=== PATIENT | female | born 1995 | race Caucasian/White ===

== ENCOUNTER 2023-08-07 22:13 | Emergency (ER) | payer BC, MEDICAID, SELFPAY ==
[2023-08-07 22:32] VITALS: BP 118/88; PULSE 103; RESP 18; TEMP 36.8; O2SAT 97; BMI 42.6
--- NOTE | 2023-08-07 22:37 | ED.ABDPAIN1 ---
HPI - Abdominal Pain General Chief Complaint: Abdominal Pain Stated Complaint: SEVERE ABDOMINAL PAIN/PELVIC Time Seen by Provider: 08/07/23 22:33 Source: patient Mode of arrival: walk-in Limitations: no limitations History of Present Illness HPI narrative: presents complaining of abdominal pain. States abrupt onset of lower abdominal pain after having a BM. No blood per rectum. Denies vaginal discharge or dysuria/hematuria. States she has IUD in place. Has not had a period in years. No fever MD elicited complaint: Reports abdominal pain Related Data Home Medications Medication Instructions Recorded Confirmed bupropion HCl 300 mg 24 hr tablet, mg PO 08/07/23 extended release buspirone 5 mg tablet mg 08/07/23 cholecalciferol (vitamin D3) 125 08/07/23 mcg (5,000 unit) capsule esomeprazole magnesium 40 mg mg 08/07/23 capsule,delayed release mecobalamin (vitamin B12) 1,000 1,000 mcg PO DAILY 08/07/23 08/07/23 mcg chewable tablet Allergies Allergy/AdvReac Type Severity Reaction Status Date / Time phentermine [From Adipex-P] AdvReac Intermediate fast heart Verified 08/07/23 22:39 rate Review of Systems ROS Status of ROS 10 or more systems reviewed and unremarkable except as noted in history and below [facility] Social History Smoking status: Current every day smoker Exam Constitutional Vital Signs, click to edit/add: Last Vital Signs Temp 98.2 F 08/07/23 22:32 Pulse 103 H 08/07/23 22:32 Resp 18 08/07/23 22:32 BP 118/88 08/07/23 22:32 Pulse Ox 97 08/07/23 22:32 O2 Del Method Room Air 08/07/23 22:32 Common normals: no apparent distress, average body habitus and oriented x3 Eye Common normals: EOMs intact bilaterally and conjunctivae normal Respiratory Common normals: normal respiratory effort, no retractions, no use of accessory muscles and clear to auscultation bilaterally Cardio Common normals: regular rate, regular rhythm, S1 normal heart sound and S2 normal heart sound GI Other: mild tenderness bilat lower quad and suprapubic Extremity Common normals: normal to inspection and full ROM Neuro Common normals: oriented x3, CN's II-XII intact bilaterally, moves all extremities, no focal motor deficits and no sensory deficits noted Psych Appearance: grossly normal Course Vital Signs Vital signs: Vital Signs Temperature 98.2 F 08/07/23 22:32 Pulse Rate 103 H 08/07/23 22:32 Respiratory Rate 18 08/07/23 22:32 Blood Pressure 118/88 08/07/23 22:32 Pulse Oximetry 97 08/07/23 22:32 Oxygen Delivery Method Room Air 08/07/23 22:32 Temperature 98.2 F 08/07/23 22:32 Pulse Rate 103 H 08/07/23 22:32 Respiratory Rate 18 08/07/23 22:32 Blood Pressure 118/88 08/07/23 22:32 Pulse Oximetry 97 08/07/23 22:32 Oxygen Delivery Method Room Air 08/07/23 22:32 MDM - Abdominal Pain MDM Narrative Medical decision making narrative: patient presents with acute onset of lower abdominal pelvic pain. Pain improved some by the time she arrived her. US demonstrates 3.7cm complex ovarian cyst. 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 Lab Data Labs: Lab Results 08/07/23 08/07/23 Range/Units 22:58 23:00 WBC 9.2 (4.0-11.0) 10^3/uL RBC 5.02 (4.20-5.40) 10^6/uL Hgb 13.5 (12.0-16.0) g/dL Hct 40.7 (36.0-48.0) % MCV 81.1 (81.0-99.0) fL MCH 26.9 (26.7-34.0) pg MCHC 33.2 (29.9-35.2) g/dL RDW 12.6 (11.0-15.0) % Plt Count 300 (150-450) 10^3/uL MPV 9.4 L (9.5-13.5) fL Neut % (Auto) 71.7 (43.0-75.0) % Lymph % (Auto) 20.5 (20.5-60.0) % Power % (Auto) 6.1 (1.7-12.0) % Eos % (Auto) 1.0 (0.9-7.0) % Baso % (Auto) 0.4 (0.2-2.0) % Neut # (Auto) 6.6 H (1.4-6.5) 10^3/uL Lymph # (Auto) 1.9 (1.2-3.8) 10^3/uL Power # (Auto) 0.6 (0.3-0.8) 10^3/uL Eos # (Auto) 0.1 (0.0-0.7) 10^3/uL Baso # (Auto) 0.0 (0.0-0.1) 10^3/uL Abs Immat Gran (auto) 0.03 (0.00-0.03) 10^3/uL Imm/Tot Granulo (auto) 0.3 (0.0-0.5) % Sodium 137 (136-145) mmol/L Potassium 3.7 (3.5-5.1) mmol/L Chloride 102 (98-107) mmol/L Carbon Dioxide 26.7 (21.0-32.0) mmol/L Anion Gap 12.0 BUN 10.0 (7.0-18.0) mg/dL Creatinine 1.10 H (0.55-1.02) mg/dL Est GFR ( Amer) >60 (>=60) Est GFR (Non-Af Amer) 59 L (>=60) BUN/Creatinine Ratio 9.1 Glucose 97 (74-106) mg/dL Lactate 1.8 (0.4-2.0) mmol/L Calcium 9.3 (8.5-10.1) mg/dL Total Bilirubin 0.3 (0.2-1.0) mg/dL AST 14 L (15-37) U/L ALT 34 (14-59) U/L Alkaline Phosphatase 75 (46-116) U/L Total Protein 7.7 (6.4-8.2) g/dL Albumin 3.8 (3.4-5.0) g/dL Globulin 3.9 g/dL Albumin/Globulin Ratio 1.0 Urine Color Yellow (YELLOW) Urine Clarity Clear (CLEAR) Urine pH 5.5 (5.0-9.0) Ur Specific Bernice >=1.030 A (1.005-1.025) Urine Protein Trace (NEG/TRACE) mg/dL Urine Glucose (UA) Negative (NEGATIVE) mg/dL Urine Ketones Trace A (NEGATIVE) mg/dL Urine Occult Blood Negative (NEGATIVE) Urine Nitrite Negative (NEGATIVE) Urine Bilirubin Negative (NEGATIVE) Urine Urobilinogen 0.2 (0.2-1.0) EU/dL Ur Leukocyte Esterase Negative (NEGATIVE) Imaging Data US - abdomen: Radiologist's impression: Ordering Physician: Isac Woodard Date of Service: 08/08/23 Procedure(s): US pelvis transvaginal Accession Number(s): [id number] cc: EVELIN MCDONALD ; Isac Woodard~ [address] [address] Patient Name: KEVIN ROSALES MRN: [id number] date: 1995 Sex: F Assigned Patient Location: ER Current Patient Location: ER Accession/Order Number: [id number] Exam Date: 08/08/2023 01:05 Report Date: 08/08/2023 02:03 At the request of: ISAC WOODARD Procedure: US pelvis transvaginal EXAMINATION: US pelvis transvaginal HISTORY: ovarian torsion , abnormal abdomen-pelvis CT scan COMPARISON: CT abdomen pelvis 08/07/2023 TECHNIQUE: Transabdominal and/or transvaginal sonographic examination was performed as indicated by examination type. FINDINGS: UTERUS: Normal size and appearance. Uterus size: 7.6 x 4.2 x 4.7 cm ENDOMETRIUM: IUD within endometrial cavity. Endometrial thickness: 4 mm RIGHT OVARY: Contains a 3.7 x 1.7 x 3.0 cm complex cyst. Duplex Doppler demonstrates normal waveform and flow; resistive index 0.5. Ovary size: 4.8 x 3.0 x 3.9 cm LEFT OVARY: Normal size and appearance. Duplex Doppler demonstrates normal waveform and flow; resistive index 0.6. Ovary size: 2.6 x 2.2 x 2.1 cm CUL-DE-SAC: Small amount of free fluid in pelvic cul-de-sac, likely physiologic. BLADDER: Unremarkable. OTHER: None. US/US pelvis transvaginal IMPRESSION: 1. No evidence of ovarian torsion. 2. Prominent 3.7 cm complex right ovarian cyst. Consider ultrasound follow-up in 6 weeks to document regression. Electronically authenticated by: MINDY CARTER Date: 08/08/2023 02:03 Dictated By: Discharge Plan Discharge Chief Complaint: Abdominal Pain Clinical Impression: Ovarian cyst Prescriptions / Home Meds: No Action buspirone 5 mg tablet esomeprazole magnesium 40 mg capsule,delayed release(DR/EC) cholecalciferol (vitamin D3) 125 mcg (5,000 unit) capsule bupropion HCl 300 mg tablet extended release 24 hr PO mecobalamin (vitamin B12) 1,000 mcg tablet,chewable 1,000 mcg PO DAILY Instructions: Ovarian Cyst (ED) Additional Instructions: follow up with your recycling worker next week Referrals: EVELIN MCDONALD [Primary Care Provider] - 1 week
--- NOTE | 2023-08-07 22:49 | CT_ITS ---
The [address] [address] Patient Name: KEVIN ROSALES MRN: [id number] date: 1995 Sex: F Assigned Patient Location: ER Current Patient Location: ER Accession/Order Number: [id number] Exam Date: 08/07/2023 23:48 Report Date: 08/08/2023 00:30 At the request of: ISAC WOODARD Procedure: CT abdomen pelvis w con EXAM: CT abdomen pelvis w con HISTORY: Lower abdominal pelvic pain. Report sharp and constant pain to the left side radiating to the pelvic area. COMPARISON: None available TECHNIQUE: Multiple axial views CT abdomen pelvis performed after administration of 100 cc Omnipaque 300 IV contrast. Coronal sagittal reformats. FINDINGS: Visualized lung bases and cardiac apex are unremarkable. Liver, gallbladder, pancreas, spleen, adrenal glands, kidneys, urinary bladder, and appendix are unremarkable. IUD within the joint canal of the uterus in place. 3.5 x 3.2 cm oval cystic pelvic mass located between the uterus and the urinary bladder (image 113 series 3, image 34 series 5). Surrounding pelvic free fluid. No evidence for small bowel obstruction, large ascites, or free air. No pericolonic inflammatory stranding. Mild amount of stool within large bowel. No acute bony abnormality. CT/CT abdomen pelvis w con IMPRESSION: 3.5 x 3.2 cm oval cystic pelvic mass located between the uterus and the urinary bladder. Surrounding mild pelvic free fluid. This mass could be ovarian or adnexal in etiology. Recommend immediate close clinical attention. Recommend pelvic ultrasound attention to the mass and gonadal vessels to evaluate for underlying ovarian torsion. This important critical urgent impression finding communicated to and acknowledged by Dr. Isac Woodard at 12:26 AM eastern time 08/08/2023 by phone. The phone call was made by Dr. Renetta Mo. Electronically authenticated by: RENETTA MO Date: 08/08/2023 00:30
[2023-08-07 23:12] LABS: Basophils Percent Auto 0.4 % (0.2-2.0); Eosinophils Absolute Auto 0.1 10^3/uL (0.0-0.7); Hematocrit 40.7 % (36.0-48.0); Hemoglobin 13.5 g/dL (12.0-16.0); Immature Granulocytes Abs Auto 0.03 10^3/uL (0.00-0.03); Immature Granulocytes Pct Auto 0.3 % (0.0-0.5); Lymphocytes Absolute Auto 1.9 10^3/uL (1.2-3.8); Lymphocytes Percent Auto 20.5 % (20.5-60.0); Mean Corpuscular HGB Conc 33.2 g/dL (29.9-35.2); Mean Corpuscular Hemoglobin 26.9 pg (26.7-34.0); Mean Corpuscular Volume 81.1 fL (81.0-99.0); Mean Platelet Volume 9.4 fL (9.5-13.5); Monocytes Absolute Auto 0.6 10^3/uL (0.3-0.8); Monocytes Percent Auto 6.1 % (1.7-12.0); Neutrophils Absolute Auto 6.6 10^3/uL (1.4-6.5); Neutrophils Percent Auto 71.7 % (43.0-75.0); Platelet Count 300 10^3/uL (150-450); Red Blood Count 5.02 10^6/uL (4.20-5.40); Red Cell Distribution Width 12.6 % (11.0-15.0); White Blood Count 9.2 10^3/uL (4.0-11.0)
[2023-08-07 23:13] LABS: Bilirubin Urine NEGATIVE (NEGATIVE); Blood Urine NEGATIVE (NEGATIVE); Clarity Urine CLEAR (CLEAR); Color Urine YELLOW (YELLOW); Glucose Urine UA NEGATIVE (NEGATIVE); Ketones Urine TRACE mg/dL (NEGATIVE); Leukocyte Esterase Urine NEGATIVE (NEGATIVE); Nitrite Urine NEGATIVE (NEGATIVE); Protein Urine TRACE mg/dL (NEG/TRACE); Specific Gravity Urine >=1.030 (1.005-1.025); Urobilinogen Urine 0.2 EU/dL (0.2-1.0); pH Urine 5.5 (5.0-9.0)
[2023-08-07 23:17] LABS: Urine Microscopic Indicated NO
[2023-08-07 23:27] LABS: Lactate/Lactic Acid 1.8 mmol/L (0.4-2.0)
[2023-08-07 23:52] LABS: Alanine Aminotransferase 34 U/L (14-59); Albumin Level 3.8 g/dL (3.4-5.0); Alkaline Phosphatase 75 U/L (46-116); Aspartate Amino Transferase 14 U/L (15-37); BUN Creatinine Ratio 9.1; Bilirubin Total 0.3 mg/dL (0.2-1.0); Calcium 9.3 mg/dL (8.5-10.1); Carbon Dioxide 26.7 mmol/L (21.0-32.0); Chloride 102 mmol/L (98-107); Estimated GFR (African America >60 (>=60); Estimated GFR (Non-African Ame 59 (>=60); Globulin 3.9 g/dL; Glucose 97 mg/dL (74-106); Potassium 3.7 mmol/L (3.5-5.1); Sodium 137 mmol/L (136-145); Total Protein 7.7 g/dL (6.4-8.2)
[2023-08-08] MEDS: 0.9 % SODIUM CHLORIDE 1,000 ML 999 ML IV (00:14)
--- NOTE | 2023-08-08 00:26 | US_ITS ---
[address] [address] Patient Name: KEVIN ROSALES MRN: [id number] date: 1995 Sex: F Assigned Patient Location: ER Current Patient Location: ER Accession/Order Number: [id number] Exam Date: 08/08/2023 01:05 Report Date: 08/08/2023 02:03 At the request of: DAVE NAVARRO Procedure: US pelvis transvaginal EXAMINATION: US pelvis transvaginal HISTORY: ovarian torsion , abnormal abdomen-pelvis CT scan COMPARISON: CT abdomen pelvis 08/07/2023 TECHNIQUE: Transabdominal and/or transvaginal sonographic examination was performed as indicated by examination type. FINDINGS: UTERUS: Normal size and appearance. Uterus size: 7.6 x 4.2 x 4.7 cm ENDOMETRIUM: IUD within endometrial cavity. Endometrial thickness: 4 mm RIGHT OVARY: Contains a 3.7 x 1.7 x 3.0 cm complex cyst. Duplex Doppler demonstrates normal waveform and flow; resistive index 0.5. Ovary size: 4.8 x 3.0 x 3.9 cm LEFT OVARY: Normal size and appearance. Duplex Doppler demonstrates normal waveform and flow; resistive index 0.6. Ovary size: 2.6 x 2.2 x 2.1 cm CUL-DE-SAC: Small amount of free fluid in pelvic cul-de-sac, likely physiologic. BLADDER: Unremarkable. OTHER: None. US/US pelvis transvaginal IMPRESSION: 1. No evidence of ovarian torsion. 2. Prominent 3.7 cm complex right ovarian cyst. Consider ultrasound follow-up in 6 weeks to document regression. Electronically authenticated by: MINDY CARTER Date: 08/08/2023 02:03
== END 2023-08-08 02:44 | disposition home or self-care (01) ==
PROVIDERS: Emergency Provider Internal Medicine; PCP Family Medicine
DX: N83.201 Unspecified ovarian cyst, right side (principal); Z97.5 Presence of (intrauterine) contraceptive device; Z79.899 Other long term (current) drug therapy; F17.210 Nicotine dependence, cigarettes, uncomplicated
CPT/HCPCS: 36415; 74177; 76830; 80053; 81003; 83605; 85025; 99285; Q9967